=== PATIENT | female | born 1945 | race Caucasian/White ===

== ENCOUNTER 2017-01-24 11:51 | Emergency (ER) | payer MEDICARE, OTHER ==
[2017-01-24] MEDS ORDERED: Sodium Chloride 0.9% 0 ML ONE (12:54)
[2017-01-24 12:55] LABS: #Basophils 0.1 thou/uL (0.0-0.2); #Eosinphils 0.2 thou/uL (0.0-0.7); #Monocytes 0.4 thou/uL (0.11-0.59); #Neutrophils 2.3 thou/uL (1.40-6.50); %Eosinophils 3.2 % (0.0-10.0); %Lymphocytes 40.3 % (21.0-51.0); %Monocytes 7.8 % (0.0-10.0); %Neutrophils 46.6 % (42.0-75.0); Hemoglobin 14.8 g/dL (12.0-16.0); Mean Corpuscular HGB CONC 34.9 g/dL (32.0-36.0); Mean Corpuscular Hemoglobin 31.9 pg (27.0-31.0); Mean Corpuscular Volume 91.3 fl (81.0-99.0); Mean Platelet Volume 6.9 fL (7.4-10.4); Platelet Count 247 thou/uL (130-400); RBC Distribution Width 10.9 % (11.5-14.5); Red Blood Cell (RBC) Count 4.65 mill/uL (4.20-5.40); White Blood Cell (WBC) Count 4.9 thou/uL (4.8-10.8)
[2017-01-24] MEDS ORDERED: Sodium Chloride 0.9% 500 ML ONE ×3 (12:57→15:14)
[2017-01-24 13:02] LABS: ALT (SGPT) 10 U/L (0-55); AST (SGOT) 20 U/L (5-34); Albumin 4.4 g/dL (3.4-4.8); Alkaline Phosphatase 75 U/L (40-150); Anion Gap 18 mmol/L (10-20); BUN (Urea Nitrogen) 17 mg/dL (9.8-20.1); Bilirubin, Total 0.7 mg/dL (0.2-1.2); Calc. Creatinine Clearance 0 mL/min (70-130); Calcium 9.9 mg/dL (7.8-10.44); Carbon Dioxide 23 mmol/L (23-31); Chloride 97 mmol/L (98-107); Estimated GFR-MDRD 57; Glucose 90 mg/dL (80-115); Protein, Total 7.4 g/dL (5.8-8.1); Sodium 134 mmol/L (136-145)
--- NOTE | 2017-01-24 13:04 | CT ---
BRAIN CT WITHOUT IV CONTRAST: History: 72-year-old female with altered mental status with vomiting and dehydration, confusion, disorientati on. FINDINGS: There is atrophy and chronic white matter ischemic changes. There is some chronic sinus mucosal almaraz ges in the left sphenoid sinus with some associated sinus wall thickening as well as minimal disease in the right sphenoid sinus. Partial opacification of both mastoids, slightly worse on the right si de. There is atrophy and chronic white matter ischemic changes bilaterally. No mass or midline shift . No acute hemorrhage. There is an approximately 0.9 cm diameter circumscribed hyperdense focus proj ecting intracranially from the inner table of the skull in the region of the high left posterior par ietal convexity region, possibly a densely calcified meningioma or focal area of dural ossification. IMPRESSION: 1. 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 Atrophy and white matter ischemi c change. Possible densely calcified meningioma in the region of the left posterior parietal high co nvexity region. No mass or bleed. POS: [facility]
[2017-01-24 13:06] LABS: CKMB 0.8 ng/mL (0-6.6); Troponin I Less than 0.010 ng/mL (< 0.028)
[2017-01-24 16:17] LABS: Blood, Urine Moderate (Negative); Clarity Cloudy (Clear); Glucose, Urine (Dipstick) 250 mg/dL (Negative); Leukocyte Moderate (Negative); Nitrite Negative (Negative); Protein, Urine (Dipstick) Trace mg/dL (Neg-Trace); pH, Urine 6.5 (5.0-9.0)
[2017-01-24 16:26] LABS: Bilirubin Negative (Negative); Icto Negative (Negative)
[2017-01-24 16:31] LABS: Bacteria/HPF 1+ HPF (None Seen); Squamous Epithelial 21-50 HPF (0-3)
[2017-01-24] MEDS ORDERED: cefTRIAXone\\ROCEPHIN 1 GM VIAL ONE (16:34)
[2017-01-24] MEDS ORDERED: Lidocaine 1% 20 ML MDV ONE (16:35)
== END 2017-01-24 17:00 | disposition home or self-care (01) ==
LOC: NAV ERS 11:51
DX: N30.01 Acute cystitis with hematuria (principal); E86.0 Dehydration; I10 Essential (primary) hypertension; F41.9 Anxiety disorder, unspecified; Z87.891 Personal history of nicotine dependence
CPT/HCPCS: 70450; 80053; 81003; 81015; 82140; 82553; 84484; 85025; 87086; 93005; 96360; 96361; 96372; J0696; J2001; J7050

== ENCOUNTER 2017-02-09 09:38 | Outpatient (CLI) | payer MEDICARE, OTHER ==
[2017-02-09 12:24] LABS: #Basophils 0.1 thou/uL (0.0-0.2); #Eosinphils 0.4 thou/uL (0.0-0.7); #Monocytes 0.6 thou/uL (0.11-0.59); #Neutrophils 3.4 thou/uL (1.40-6.50); %Basophils 1.3 % (0.0-1.0); %Eosinophils 5.1 % (0.0-10.0); %Lymphocytes 40.3 % (21.0-51.0); %Monocytes 8.1 % (0.0-10.0); %Neutrophils 45.2 % (42.0-75.0); Hemoglobin 13.8 g/dL (12.0-16.0); Mean Corpuscular HGB CONC 33.4 g/dL (32.0-36.0); Mean Corpuscular Hemoglobin 30.8 pg (27.0-31.0); Platelet Count 273 thou/uL (130-400); Red Blood Cell (RBC) Count 4.49 mill/uL (4.20-5.40); White Blood Cell (WBC) Count 7.5 thou/uL (4.8-10.8)
[2017-02-09 12:36] LABS: Hemoglobin A1c 5.5 % (4.0-6.0)
[2017-02-09 13:03] LABS: ALT (SGPT) 13 U/L (0-55); AST (SGOT) 26 U/L (5-34); Albumin 4.4 g/dL (3.4-4.8); Alkaline Phosphatase 78 U/L (40-150); Anion Gap 20 mmol/L (10-20); BUN (Urea Nitrogen) 28 mg/dL (9.8-20.1); Bilirubin, Direct 0.2 mg/dL (0.1-0.3); Bilirubin, Total 0.5 mg/dL (0.2-1.2); Calc. Creatinine Clearance 0 mL/min (70-130); Calcium 9.8 mg/dL (7.8-10.44); Carbon Dioxide 19 mmol/L (23-31); Cardiac Risk 4.2 (Less than 4.5); Chloride 99 mmol/L (98-107); Cholesterol 196 mg/dL (< 200 Desired); Estimated GFR-MDRD 42; Glucose 98 mg/dL (80-115); HDL Cholesterol 47 mg/dL (>60 Neg Risk); LDL Cholesterol, Calculated 132 mg/dL; Potassium 3.9 mmol/L (3.5-5.1); Protein, Total 6.6 g/dL (5.8-8.1); Sodium 134 mmol/L (136-145); Triglycerides 87 mg/dL (Less than 150)
== END 2017-02-09 09:39 | disposition home or self-care (01) ==
LOC: NAVSJIPCSP 09:38
PROVIDERS: ATTEND Family Medicine
DX: E78.00 Pure hypercholesterolemia, unspecified (principal); N30.00 Acute cystitis without hematuria; I10 Essential (primary) hypertension; Z79.899 Other long term (current) drug therapy
CPT/HCPCS: 36415; 80048; 80061; 80076; 83036; 84443; 85025

== ENCOUNTER 2018-10-30 18:22 | Outpatient (CLI) | payer MEDICARE, OTHER ==
[2018-10-30 19:48] LABS: Bilirubin Negative (Negative); Blood, Urine Negative (Negative); Clarity SL HAZY (Clear); Glucose, Urine (Dipstick) Negative (Negative); Leukocyte Trace (Negative); Nitrite Negative (Negative); Protein, Urine (Dipstick) Negative (Neg-Trace); Urobilinogen 0.2 mg/dL (0.2-1.0); pH, Urine 5.5 (5.0-9.0)
[2018-10-30 20:17] LABS: RBC/HPF 0-3 HPF (0-3); WBC/HPF 0-3 HPF (0-3)
== END 2018-10-30 18:23 | disposition home or self-care (01) ==
LOC: NAV LAB 18:22
PROVIDERS: ATTEND Family Medicine
DX: R30.0 Dysuria (principal)
CPT/HCPCS: 81003; 81015; 87086

== ENCOUNTER 2020-02-04 10:16 | Outpatient (CLI) | payer MEDICARE, OTHER ==
[2020-02-04 10:21] LABS: Bilirubin Negative (Negative); Blood, Urine Moderate (Negative); Clarity Cloudy (Clear); Glucose, Urine (Dipstick) Negative (Negative); Leukocyte Large (Negative); Nitrite Positive (Negative); Protein, Urine (Dipstick) 100 mg/dL (Neg-Trace)
[2020-02-04 10:32] LABS: RBC/HPF Greater than 50 HPF (0-3)
[2020-02-04 10:33] LABS: Bacteria/HPF 1+ HPF (None Seen)
== END 2020-02-04 10:17 | disposition home or self-care (01) ==
LOC: NAV LAB 10:16 → NAV SJFMSP 10:17
PROVIDERS: ATTEND Family Medicine
DX: R32 Unspecified urinary incontinence (principal); R82.90 Unspecified abnormal findings in urine
CPT/HCPCS: 81003; 81015; 87086; 87186

== ENCOUNTER 2020-04-10 12:19 | Emergency (ER) | payer MEDICARE, OTHER ==
[2020-04-12 11:44] LABS: SARS-CoV-2 MS2 Positive; SARS-CoV-2 N Gene Negative; SARS-CoV-2 S Gene Negative; SARS-CoV-2 orf1ab Negative
== END 2020-04-10 13:20 | disposition home or self-care (01) ==
LOC: NAV ERS 12:19
DX: Z20.828 Contact with and (suspected) exposure to other viral communicable diseases (principal); I10 Essential (primary) hypertension; F41.9 Anxiety disorder, unspecified; Z87.891 Personal history of nicotine dependence; Z79.899 Other long term (current) drug therapy
CPT/HCPCS: 87635; 99283; U0003